=== PATIENT | female | born 1950 ===

== ENCOUNTER 2021-11-07 03:53 | Inpatient (IN) ==
[2021-11-07] MEDS ORDERED: PIPERACILLIN/TAZOBACTAM 3,375 MG in SODIUM CHLORIDE 0.9% 100 ML IV STA (04:20)
[2021-11-07 06:02] LABS: Basophils % 0.2 % (0.0-0.8); Eosinophils % 0.2 % (0.00-10.9); Hemoglobin 10.6 GM/DL (12.0-16.0); Immature Granulocytes % 0.4 %; Immature Granulocytes Absolute 0.04 #; Lymphocytes # 1.3 10*3/uL (1.4-4.0); Lymphocytes % 13.9 % (21.3-54.2); Mean Corpuscular HGB Conc 33.1 GM/DL (32-36); Monocytes % 10.3 % (1.7-12.7); Platelet Count 143 T/CUMM (130-400); Red Cell Distribution Width 12.4 % (9.3-17.3); White Blood Count 9.4 T/CUMM (4-12)
[2021-11-07 06:42] LABS: Albumin 2.9 G/DL (3.4-5.0); Calcium 8.5 MG/DL (8.5-10.1); Osmolality,Calculated 282.5 MOS/KG (273-304); Potassium 4.2 MMOL/L (3.5-5.1); Total Protein 7.5 G/DL (6.4-8.2)
[2021-11-07] MEDS ORDERED: INDOCYANINE GREEN 25 MG VIAL IV ONE (07:47)
[2021-11-07] MEDS ORDERED: ONDANSETRON 4 MG/2 ML VIAL IV PRN (09:23)
[2021-11-07] MEDS ORDERED: PROMETHAZINE 25 MG/1 ML VIAL IM PRN (09:23)
[2021-11-07] MEDS ORDERED: ACETAMINOPHEN 325 MG TABLET PO PRN (09:23)
[2021-11-07] MEDS ORDERED: HYDROmorphone 2 MG/1 ML VIAL IV PRN (09:23)
[2021-11-07] MEDS: LACTATED RINGERS 1,000 ML IV SCH ×2 (11:44→21:47)
[2021-11-07] MEDS: PANTOPRAZOLE 40 MG TABLET PO SCH (11:46)
[2021-11-07] MEDS: PIPERACILLIN/TAZOBACTAM 3,375 MG in SODIUM CHLORIDE 0.9% 100 ML IV SCH ×2 (12:44→21:46)
[2021-11-07] MEDS: carvediloL 3.125 MG TABLET PO SCH (17:19)
[2021-11-07] MEDS: GABAPENTIN 400 MG CAPSULE PO SCH (21:49)
[2021-11-07] MEDS ORDERED: ENOXAPARIN 40 MG/0.4 ML SYRINGE SUBCUT SCH (22:00)
[2021-11-08] MEDS: PIPERACILLIN/TAZOBACTAM 3,375 MG in SODIUM CHLORIDE 0.9% 100 ML IV SCH (04:32)
[2021-11-08] MEDS: LACTATED RINGERS 1,000 ML IV SCH ×3 (04:33→18:42)
[2021-11-08] MEDS ORDERED: BUPIVACAINE MPF 0.25% 30 ML VIAL ONE (06:16)
[2021-11-08] MEDS ORDERED: LIDOCAINE 1%/EPI INJ 20 ML VIAL ONE (06:16)
[2021-11-08] MEDS ORDERED: TISSUE ADHESIVE 1 EACH APPLICATOR TOP ONE ×2 (06:16→08:53)
[2021-11-08] MEDS ORDERED: SUCCINYLCHOLINE 200 MG/10 ML VIAL ONE (06:33)
[2021-11-08] MEDS ORDERED: ROCURONIUM 50 MG/5 ML VIAL IV ONE (06:33)
[2021-11-08] MEDS ORDERED: LIDOCAINE 2% 5 ML VIAL ONE (06:33)
[2021-11-08] MEDS ORDERED: propofoL 200 MG/20 ML VIAL IV ONE (06:33)
[2021-11-08] MEDS ORDERED: MIDAZOLAM 2 MG/2 ML VIAL ONE (06:33)
[2021-11-08] MEDS ORDERED: fentaNYL 100 MCG/2 ML VIAL ONE ×2 (06:33→08:47)
[2021-11-08] MEDS ORDERED: PHENYLEPHRINE 1 MG/10 ML SYRINGE IV ONE (06:35)
[2021-11-08] MEDS ORDERED: ePHEDrine 50 MG/ML VIAL ONE (07:13)
[2021-11-08] MEDS ORDERED: GLYCOPYRROLATE 0.4 MG/2 ML VIAL ONE (07:14)
[2021-11-08] MEDS ORDERED: FAMOTIDINE 20 MG/2 ML VIAL IV ONE (07:20)
[2021-11-08] MEDS ORDERED: NEOSTIGMINE 10 MG/10 ML VIAL ONE (07:27)
[2021-11-08] MEDS ORDERED: SEVOFLURANE 1 UNIT/15 MINUTE INH ONE (07:35)
[2021-11-08] MEDS ORDERED: LACTATED RINGERS 1,000 ML IV ONE (07:35)
[2021-11-08] MEDS ORDERED: ACETAMINOPHEN INJ 1,000 MG/100 ML VIAL IV ONE (07:57)
[2021-11-08] MEDS ORDERED: [UNRECOGNIZED DRUG - REMARK] SUBCUT SCH (09:00)
[2021-11-08] MEDS ORDERED: ALBUTEROL/IPRATROPIUM 3 ML NEB RESP TX PRN (09:14)
[2021-11-08] MEDS ORDERED: KETOROLAC 15 MG/1 ML VIAL IV PRN (09:14)
[2021-11-08] MEDS ORDERED: DEXTROSE 50% 25 GM/50 ML SYRINGE IV PRN (09:15)
[2021-11-08] MEDS: PANTOPRAZOLE 40 MG TABLET PO SCH (09:15)
[2021-11-08] MEDS: PIOGLITAZONE 15 MG TABLET PO SCH (09:15)
[2021-11-08] MEDS: carvediloL 3.125 MG TABLET PO SCH ×2 (09:15→16:32)
[2021-11-08] MEDS ORDERED: GLUCAGON 1 MG VIAL IM PRN (09:15)
[2021-11-08] MEDS ORDERED: HYDROmorphone 2 MG/1 ML VIAL IV PRN (09:17)
[2021-11-08] MEDS ORDERED: ONDANSETRON 4 MG/2 ML VIAL IV PRN (09:17)
[2021-11-08] MEDS: GABAPENTIN 400 MG CAPSULE PO SCH (21:09)
[2021-11-09] MEDS: LACTATED RINGERS 1,000 ML IV SCH (04:38)
[2021-11-09 07:48] VITALS: BP 122/78
[2021-11-09] MEDS: PIOGLITAZONE 15 MG TABLET PO SCH (08:51)
[2021-11-09] MEDS: carvediloL 3.125 MG TABLET PO SCH (08:51)
[2021-11-09] MEDS: PANTOPRAZOLE 40 MG TABLET PO SCH (08:51)
== END 2021-11-09 11:45 | disposition home or self-care (01) | DRG 419 ==
LOC: EDUNIT# → EDBD → N.ED 03:53 → N.EDINP 04:17 → N.3E 08:45
PROVIDERS: ADMIT Surgery; ATTEND Surgery